=== PATIENT | female | born 1970 | race Caucasian/White ===

== ENCOUNTER → 2016-08-02 | Outpatient (REF) | payer BC | LOC: M SFHCWAGY 15:10 | PROVIDERS: ATTEND Family Medicine | DX: Z12.4 Encounter for screening for malignant neoplasm of cervix (principal) ==

== ENCOUNTER → 2017-01-28 | Outpatient (CLI) | payer BC ==
[~2017-01-28] MED LIST: ALBU17IN INH; CLAR10CA3 PO; COLE625TAB PO; FLUT1SPR2; IRON50TA PO; MEDR10TA PO; MONT10TA2 PO; OMEP40CA2 PO; OXYC1TAB23 PO; RANI15TA PO
--- NOTE | 2017-01-28 18:25 | REP ---
PELVIC ULTRASOUND: Real-time sonographic evaluation of the pelvis was performed utilizing transabdominal and endovaginal technique. The bladder measures 6.3 x 4.2 x 7.9 cm. The uterus measures 13.0 x 5.7 x 5.8 cm. Study is limited due to patient body habitus and uterine length, limiting evaluation of the uterus on endovaginal imaging. There is a rounded heterogenous mass like area in the fundus measuring 4.1 x 3.2 x 3.2 cm, I am uncertain if this endometrial or myometrial in etiology. Differential diagnosis would include an endometrial mass or submucosal fibroid. Right ovary measures 3.5 x 2.1 x 2.2 cm and contains a dominant follicle 1.3 cm in diameter. Left ovary measures 3.8 x 1.2 x 2.3 cm. There is no adnexal mass or free fluid. IMPRESSION: Somewhat limited exam due to patient body habitus. Somewhat enlarged uterus. Heterogenous mass like area in the fundus of the uterus measures 4.1 x 3.2 x 3.2 cm. Etiology is uncertain. This could represent a submucosal fibroid but endometrial neoplasm can not be excluded.
== END ==
LOC: M WHC 11:01
PROVIDERS: ATTEND Nurse Practitioner Women's Health
DX: N92.1 Excessive and frequent menstruation with irregular cycle (principal)

== ENCOUNTER → 2017-01-30 | Outpatient (REF) | payer BC ==
[2017-01-31 11:51] LABS: ADD MANUAL DIFFER YES; MEAN CORPUSCULAR HEMOGLOBIN 22.6 pg (27.0-33.0); MEAN CORPUSCULAR HGB CONC 30.5 g/dl (32.0-36.5); MEAN CORPUSCULAR VOLUME 74.3 fl (80.0-96.0); RED CELL DISTRIBUTION WIDTH 15.9 % (11.5-14.5)
[2017-01-31 12:08] LABS: ALBUMIN 3.1 GM/DL (3.2-5.2); ALBUMIN/GLOBULIN RATIO 0.78 (1.00-1.93); ALKALINE PHOSPHATASE 82 U/L (45-117); ALT/SGPT 28 U/L (12-78); ANION GAP 8 MEQ/L (8-16); AST/SGOT 17 U/L (15-37); BILIRUBIN,TOTAL 0.2 MG/DL (0.2-1.0); BLOOD UREA NITROGEN 7 MG/DL (7-18); CALCIUM LEVEL 8.4 MG/DL (8.5-10.1); CARBON DIOXIDE LEVEL 27 MEQ/L (21-32); CHLORIDE LEVEL 107 MEQ/L (98-107); CREATININE FOR GFR 0.75 MG/DL (0.55-1.02); GLOMERULAR FILTRATION RATE > 60.0 (>58); GLUCOSE, FASTING 92 MG/DL (70-105); POTASSIUM SERUM 3.8 MEQ/L (3.5-5.1); SODIUM LEVEL 142 MEQ/L (136-145); TOTAL PROTEIN 7.1 GM/DL (6.4-8.2)
[2017-01-31 12:18] LABS: EOSINOPHILS 8 % (0-5)
[2017-01-31 12:19] LABS: PLATELET CLUMPS LARGE AMT
[2017-01-31 12:22] LABS: HYPOCHROMASIA 2+; MICROCYTOSIS 1+
[2017-01-31 12:31] LABS: ERYTHROCYTE SEDIMENTATION RATE 24 mm/hr (0-20)
== END ==
LOC: M SFHCLERA 15:22
PROVIDERS: ATTEND Family Medicine
DX: M79.604 Pain in right leg (principal)

== ENCOUNTER → 2017-01-31 | Outpatient (REF) | payer BC | LOC: M SFHCWAGY 14:37 | PROVIDERS: ATTEND Nurse Practitioner Family | DX: N92.1 Excessive and frequent menstruation with irregular cycle (principal) ==

== ENCOUNTER 2017-03-04 10:05 | Day surgery (SDC) | payer BC ==
[~2017-03-04] VITALS: Ht 157.5 cm; Wt 88.9 kg
[~2017-03-04 10:05] MED LIST changes: -MEDR10TA PO; -MONT10TA2 PO; -OMEP40CA2 PO; -OXYC1TAB23 PO
[2017-03-04] MEDS ORDERED: LIDOCAINE 1% MDV 20ML VIAL SQ ONE (10:30)
[2017-03-04] MEDS ORDERED: LR 1,000 ML IV ONE (10:30)
[2017-03-04 10:37] LABS: MEAN CORPUSCULAR HEMOGLOBIN 24.7 pg (27.0-33.0); MEAN CORPUSCULAR HGB CONC 32.2 g/dl (32.0-36.5); MEAN CORPUSCULAR VOLUME 76.5 fl (80.0-96.0); RED CELL DISTRIBUTION WIDTH 17.9 % (11.5-14.5); WHITE BLOOD COUNT 9.5 K/mm3 (4.0-10.0)
[2017-03-04 10:40] LABS: CONTROL LINE UCG INT CTR LINE PRESENT
[2017-03-04] MEDS ORDERED: dexameTHASONE 4 MG/ML 1ML VIAL (J1100) As Ordered ONE (10:58)
[2017-03-04] MEDS ORDERED: KETOROLAC 60 MG/2 ML VIAL (J1885) As Ordered ONE (10:58)
[2017-03-04] MEDS ORDERED: ONDANSETRON 4MG/2ML VIAL (J2405) As Ordered ONE (10:58)
[2017-03-04] MEDS ORDERED: LIDOCAINE 2% INJ 100 MG/5 ML SDV (FOR ANES.) As Ordered ONE (10:58)
[2017-03-04] MEDS ORDERED: PROPOFOL 200 MG/20 ML VIAL As Ordered ONE (10:58)
[2017-03-04] MEDS ORDERED: fentaNYL 100 MCG/2 ML INJECTION (J3010) As Ordered ONE ×3 (12:29→13:38)
[2017-03-04] MEDS ORDERED: MIDAZOLAM INJ 2 MG/2 ML VIAL (J2250) As Ordered ONE (12:29)
[2017-03-04] MEDS ORDERED: SILVER NITRATE APPLICATOR As Ordered ONE ×2 (13:10→13:36)
[2017-03-04] MEDS ORDERED: PERCOCET 5MG/325MG TAB As Ordered ONE (13:38)
[2017-03-04] MEDS: fentaNYL 100 MCG/2 ML INJECTION (J3010) IV PRN ×3 (13:42→13:52)
[2017-03-04] MEDS ORDERED: PERCOCET 5MG/325MG TAB PO PRN ×2 (13:45)
[2017-03-04] MEDS ORDERED: ONDANSETRON 4MG/2ML VIAL (J2405) IV PRN (13:45)
[2017-03-04] MEDS ORDERED: LR 1,000 ML IV SCH (13:45)
[2017-03-04] MEDS ORDERED: HYDROmorphone HCL 1 MG/ML SYRINGE (J1170) IV PRN (13:45)
[2017-03-04 15:40] VITALS: BP 139/73
[2017-03-04] MEDS ORDERED: KETOROLAC 30 MG/ML VIAL (J1885) IV SCH (17:00)
--- NOTE | 2017-03-04 21:48 | RO ---
DATE OF PROCEDURE: 03/04/2017 PREPROCEDURE DIAGNOSIS: 1. Abnormal uterine bleeding. 2. Endometrial fibroid. POSTPROCEDURE DIAGNOSIS: 1. Abnormal uterine bleeding. 2. Endometrial fibroid. PROCEDURE: Hysteroscopy and dilation and curettage with MyoSure. SURGEON: Dr. Antonia García TANGLED YARN WORKER: ANESTHESIA: General endotracheal anesthesia. ESTIMATED BLOOD LOSS: 10 mL INTRAVENOUS FLUIDS: 1100 mL of lactated Ringer's solution. URINE OUTPUT: 400 mL. SPECIMENS: Endometrial curetting and endometrial fibroid. OPERATIVE FINDINGS: Patient with an approximately 4 cm endometrial fibroid. The uterus sounded to 11-1/2 cm. Otherwise normal appearing endometrial cavity. DESCRIPTION OF PROCEDURE: After informed consent was obtained and written consent was reviewed, the patient was brought to the operating room where general endotracheal anesthesia was obtained. She was then placed in lithotomy position and was prepped and draped in the normal sterile fashion. A time-out in the operating room was then performed identifying the patient, procedure to be performed, as well as drug allergies. A bivalve speculum was then placed revealing the cervix. The anterior lip of the cervix was grasped with a single-tooth tenaculum. The cervix was then sounded to 11-1/2 cm. Next, the cervix was then sequentially dilated using Hanks dilators. The hysteroscope was then advanced through the cervical os to the level of the fundus where the endometrial cavity was surveyed with the above noted finding. Next, a MyoSure device was then advanced through the hysteroscope, and I began to morcellate the endometrial fibroid and during this process, I noted that our fluid deficit was approaching 700 mL at which time I terminated the procedure with partial morcellation of the endometrial fibroid. The hysteroscope was then removed. A sharp curette was then advanced through the cervical os at the level of the fundus and the uterus was curetted with a large amount of tissue from the sharp curetting. Instruments were then removed from the patient's vagina. The specimen was all collected and sent to pathology for further evaluation. The single-tooth tenaculum was removed and tenaculum sites were hemostatic using silver nitrate. The speculum was then removed. In-and-out catheter was then performed productive of 400 mL of clear urine. The patient was then taken out of lithotomy position, was awakened from general anesthesia and taken to recovery in stable condition. Counts were correct.
[2017-03-28] MEDS ORDERED: OMEP40CA2 PO (09:48)
[2017-03-28] MEDS ORDERED: MEDR10TA PO (09:48)
[2017-03-28] MEDS ORDERED: MONT10TA2 PO (09:48)
== END 2017-03-04 16:00 | disposition home or self-care (01) ==
LOC: M SDC 10:05
PROVIDERS: ATTEND Obstetrics & Gynecology
DX: N93.9 Abnormal uterine and vaginal bleeding, unspecified (principal); D25.9 Leiomyoma of uterus, unspecified; K21.9 Gastro-esophageal reflux disease without esophagitis; D64.9 Anemia, unspecified; I83.91 Asymptomatic varicose veins of right lower extremity; J30.2 Other seasonal allergic rhinitis; Z79.899 Other long term (current) drug therapy
CPT/HCPCS: 36415; 58558; 84703; 85027; 86850; 88305; J1100; J1885; J2250; J2405; J3010

== ENCOUNTER 2017-03-31 11:59 | Day surgery (SDC) | payer BC ==
[~2017-03-31] VITALS: Ht 157.5 cm; Wt 83.5 kg
[~2017-03-31 11:59] MED LIST changes: +MEDR10TA PO; +MONT10TA2 PO; +OMEP40CA2 PO
[2017-03-31] MEDS ORDERED: LR 1,000 ML IV ONE (12:15)
[2017-03-31 12:44] LABS: MEAN CORPUSCULAR HEMOGLOBIN 25.6 pg (27.0-33.0); MEAN CORPUSCULAR HGB CONC 31.9 g/dl (32.0-36.5); MEAN CORPUSCULAR VOLUME 80.3 fl (80.0-96.0); RED CELL DISTRIBUTION WIDTH 19.8 % (11.5-14.5); WHITE BLOOD COUNT 8.2 10^3/uL (4.0-10.0)
[2017-03-31] MEDS ORDERED: BUPIVACAINE HCL 0.25% 30 ML VIAL As Ordered ONE (13:27)
[2017-03-31] MEDS ORDERED: ceFAZolin 2 GM/D5W 50 ML IV BAG (J0690) As Ordered ONE (13:42)
[2017-03-31] MEDS ORDERED: GLYCOPYRROLATE INJ 0.2 MG/ML 2 ML VIAL As Ordered ONE (14:27)
[2017-03-31] MEDS ORDERED: ROCURONIUM BROMIDE 50 MG/5 ML VIAL/SYRINGE As Ordered ONE ×2 (14:27→14:34)
[2017-03-31] MEDS ORDERED: diphenhydrAMINE INJ 50MG/ML VIAL (J1200) As Ordered ONE (14:27)
[2017-03-31] MEDS ORDERED: NEOSTIGMINE 10 MG/10 ML VIAL (J2710) As Ordered ONE (14:27)
[2017-03-31] MEDS ORDERED: fentaNYL 250 MCG/5 ML INJECTION (J3010) As Ordered ONE (14:27)
[2017-03-31] MEDS ORDERED: LIDOCAINE 2% INJ 100 MG/5 ML SDV (FOR ANES.) As Ordered ONE (14:27)
[2017-03-31] MEDS ORDERED: ONDANSETRON 4MG/2ML VIAL (J2405) As Ordered ONE (14:27)
[2017-03-31] MEDS ORDERED: PROPOFOL 200 MG/20 ML VIAL As Ordered ONE ×2 (14:27→18:01)
[2017-03-31] MEDS ORDERED: dexameTHASONE 4 MG/ML 1ML VIAL (J1100) As Ordered ONE (14:27)
[2017-03-31] MEDS ORDERED: HYDROmorphone HCL 2 MG/ML 1ML VIAL (J1170) As Ordered ONE (14:27)
[2017-03-31] MEDS ORDERED: KETOROLAC 60 MG/2 ML VIAL (J1885) As Ordered ONE (14:27)
[2017-03-31] MEDS ORDERED: MIDAZOLAM INJ 2 MG/2 ML VIAL (J2250) As Ordered ONE (14:27)
[2017-03-31] MEDS ORDERED: ESMOLOL INJ 100MG/10ML VIAL As Ordered ONE (18:02)
[2017-03-31] MEDS ORDERED: PERCOCET 5MG/325MG TAB As Ordered ONE (18:32)
[2017-03-31] MEDS ORDERED: fentaNYL 100 MCG/2 ML INJECTION (J3010) As Ordered ONE (18:32)
[2017-03-31] MEDS: fentaNYL 100 MCG/2 ML INJECTION (J3010) IV PRN ×4 (18:35→18:54)
[2017-03-31] MEDS ORDERED: HYDROmorphone HCL 1 MG/ML SYRINGE (J1170) IV PRN (18:45)
[2017-03-31] MEDS ORDERED: LR 1,000 ML IV SCH (18:45)
[2017-03-31] MEDS ORDERED: zolPIDEM TARTRATE 10MG TAB PO PRN (18:45)
[2017-03-31] MEDS ORDERED: PROMETHAZINE INJ 25 MG/ML VIAL (J2550) IV PRN (18:45)
[2017-03-31] MEDS ORDERED: PERCOCET 5MG/325MG TAB PO PRN ×2 (18:45)
[2017-03-31] MEDS ORDERED: ONDANSETRON 4MG/2ML VIAL (J2405) IV PRN (18:45)
[2017-03-31] MEDS ORDERED: MORPHINE 4 MG/ML 1ML SYRINGE IV PRN (18:45)
[2017-03-31 20:00] VITALS: BP 107/59
[2017-03-31 20:30] VITALS: BP 120/65
[2017-03-31 21:00] VITALS: BP 129/68
[2017-03-31] MEDS ORDERED: KETOROLAC 30 MG/ML VIAL (J1885) IV SCH (21:00)
[2017-03-31 21:30] VITALS: BP 124/59
[2017-03-31 22:30] VITALS: BP 138/84
[2017-03-31] MEDS: PERCOCET 5MG/325MG TAB PO PRN (22:40)
[2017-03-31 23:30] VITALS: BP 132/82
[2017-04-01 00:30] VITALS: BP 137/69
[2017-04-01] MEDS: KETOROLAC 30 MG/ML VIAL (J1885) IV SCH ×2 (00:42→05:21)
[2017-04-01 01:30] VITALS: BP 129/68
[2017-04-01 07:01] LABS: MEAN CORPUSCULAR HGB CONC 32.4 g/dl (32.0-36.5); MEAN CORPUSCULAR VOLUME 80.3 fl (80.0-96.0); RED CELL DISTRIBUTION WIDTH 19.5 % (11.5-14.5)
[2017-04-01 08:00] VITALS: BP 125/70
[2017-04-01] MEDS ORDERED: OXYC1TAB23 PO (09:26)
[2017-04-01] MEDS: PERCOCET 5MG/325MG TAB PO PRN (10:04)
--- NOTE | 2017-04-05 07:34 | RO ---
DATE OF PROCEDURE: 03/31/2017 PREPROCEDURE DIAGNOSIS: 1. Abnormal uterine bleeding. 2. Fibroid uterus. POSTPROCEDURE DIAGNOSIS: 1. Abnormal uterine bleeding. 2. Fibroid uterus. PROCEDURE: 1. Robotic-assisted laparoscopic hysterectomy. 2. Bilateral salpingectomy. 3. Cystoscopy. SURGEON: Antonia García MD JUSTICE COURT JUDGE: Chuck Parmar MD ANESTHESIA: General endotracheal anesthesia. ESTIMATED BLOOD LOSS: 100 ML. INTRAVENOUS FLUIDS: 1800 mL of lactated Ringer's solution. URINE OUTPUT: 500 mL. SPECIMENS: Cervix, uterus, bilateral fallopian tubes. PREOPERATIVE ANTIBIOTICS: 2 grams of Ancef INFECTION CLASSIFICATION: #2. OPERATIVE FINDINGS: Patient with densely adhered anterior uterus to the abdominal wall. Normal bilateral adnexa. CYSTOSCOPIC FINDINGS: Reveal normal bladder mucosa. No foreign bodies were visualized. Bilateral ureteral jets were observed. DESCRIPTION OF PROCEDURE: After informed consent was obtained and written consent was reviewed, the patient was brought to the operating room where she was placed under general endotracheal anesthesia. She was then placed in the lithotomy position and prepped and draped in a normal sterile fashion. A time- out in the operating room was then performed, identifying the patient, procedure to be performed, as well as drug allergies. A speculum was then placed revealing the cervix, anterior and posterior aspect of the cervix was stitched with #0 Vicryl. The uterus was then sounded to 9 cm. A small VCare uterine manipulator was then advanced through the cervical os, as a means to manipulate the uterus. The uterine balloon was insufflated with 10 mL of air. Cervical cap was then placed over the cervix. The vaginal sleeve was advanced down to the vagina. Instruments were then removed from the patient's vagina. Lynn catheter was then placed and set to gravity. Gloves were changed. Attention was turned to the patient's abdomen where a Veress needle was placed through the umbilicus. Pneumoperitoneum was then obtained with CO2 gas. Supraumbilical area was then infused with 0.25% Marcaine, and an incision was made in this area. 12 mm trocar and sleeve was advanced through this incision. Laparoscope was then replaced revealing intraabdominal placement. The lateral ports, left and right of umbilicus, were placed. Each of these ports were infused with 0.25% Marcaine. Incision was made in each one of these areas. 8 mm trocars and sleeve was advanced through each one of these incisions under direct visualization. The fourth trocar was placed in the left side of the patient's abdomen. This area was infused with 0.25% Marcaine. An incision was made in this area and another 8 mm trocar and sleeve was advanced through this incision under direct visualization. Next, the da Danae was then advanced to the patient's table, then was docked utilizing the camera arm and two operative arms. Utilizing the da Danae equipment with bipolar cautery, bilateral salpingectomies were performed. The right fallopian tube was placed on traction. The mesosalpinx was then cauterized and ligated with good hemostasis noted. It was transected at the uterus and specimen was brought out through the incision. In a similar fashion, the left fallopian tube was placed on traction and dissection was then performed along the mesosalpinx, the fallopian tube was transected at the uterus. The specimen was then brought through the incision. Next, a dense band of adhesion was transected from the anterior portion of the uterus from the abdominal wall using a PK bipolar cautery device with good hemostasis noted. The round ligaments were then cauterized bilaterally and ligated with good hemostasis noted. The anterior lip of the broad ligaments were then dissected along the bladder, creating a bladder flap. The remainder of the broad ligaments and cardinal ligaments were cauterized with good hemostasis noted. The uterine arteries were then skeletonized bilaterally, and they were cauterized and ligated with good hemostasis noted. Next, anterior and posterior colpotomies were made and the uterus was removed vaginally. Good hemostasis was noted. Next, the vaginal cuff was closed using a #2-0 V-Loc system in a running fashion. Surgical sites were inspected and noted to be hemostatic. Luis Angel was then applied over surgical urbano. The da Danae was then undocked and cystoscopy was performed. Lynn catheter was removed and a cystoscope was advanced transurethrally. Cystoscopy was performed revealing normal bladder mucosa. No foreign bodies with bilateral ureteral jets observed. The bladder was then drained, gloves were changed and attention was turned to the patient's abdomen. All four skin incisions were closed with #4-0 Monocryl and was dressed with Dermabond. The patient was then taken out of the lithotomy position, was awakened from general anesthesia and taken to recovery in stable condition. Counts were correct. MTDD
== END 2017-04-01 10:23 | disposition home or self-care (01) ==
LOC: M SDC 11:59 → M PED 19:30 → M SDC 04-01 10:23
PROVIDERS: ATTEND Obstetrics & Gynecology
DX: N93.9 Abnormal uterine and vaginal bleeding, unspecified (principal); D25.0 Submucous leiomyoma of uterus; N72 Inflammatory disease of cervix uteri; K21.9 Gastro-esophageal reflux disease without esophagitis; D64.9 Anemia, unspecified; I83.91 Asymptomatic varicose veins of right lower extremity; J30.2 Other seasonal allergic rhinitis; Z79.899 Other long term (current) drug therapy; Z98.51 Tubal ligation status
CPT/HCPCS: 36415; 58571; 85027; 86850; 86900; 86901; 88307; A6024; J0690; J1100; J1170; J1200; J1885; J2250; J2405; J2710; J3010

== ENCOUNTER → 2017-06-05 | Outpatient (CLI) | payer BC ==
[~2017-06-05] MED LIST changes: +OXYC1TAB23 PO
--- NOTE | 2017-06-05 09:10 | REPMRS ---
Patient History The patient states she has not had a clinical breast exam in over a year. Family history of breast cancer in maternal aunt at age 50 or over. Benign stereotactic core biopsy of the right breast, May 03, 2014. Digital Mammo Screening Bilat: June 05, 2017 - Exam #: [id number] Bilateral CC and MLO view(s) were taken. Technologist: Liya Guevara, Technologist Prior study comparison: June 03, 2016, bilateral digital mammo screening bilat performed at [facility]. June 01, 2015, bilateral digital mammo screening bilat performed at [facility]. FINDINGS: There are scattered fibroglandular densities. There has been no change in the appearance of the mammogram from the prior studies. There is a mild amount of residual fibroglandular tissue which is fairly symmetric. There is no interval development of dominant mass, architectural distortion, or clustered microcalcification suggestive of malignancy. ASSESSMENT: BI-RADS/ACR category 1 mammogram. Negative. Recommendation Routine screening mammogram in 1 year (for women over age 40). This mammogram was interpreted with the aid of an FDA-approved computer-aided dectection system. Electronically Signed By: Yandel Avalos MD 06/05/17 0910
== END ==
LOC: M RAD 08:15
PROVIDERS: ATTEND Obstetrics & Gynecology
DX: Z12.31 Encounter for screening mammogram for malignant neoplasm of breast (principal)

== ENCOUNTER → 2018-02-22 | Outpatient (REF) | payer BC | LOC: M SFHCLERA 16:01 | DX: J02.9 Acute pharyngitis, unspecified (principal) ==

== ENCOUNTER → 2018-02-22 | Outpatient (CLI) | payer BC | LOC: M LRY 13:21 | DX: R06.02 Shortness of breath (principal) | CPT/HCPCS: 87804 ==

== ENCOUNTER → 2018-03-16 | Outpatient (REF) | payer BC | LOC: M SFHCLERA 14:35 | DX: L60.8 Other nail disorders (principal) ==

== ENCOUNTER → 2018-03-17 | Outpatient (CLI) | payer BC ==
[2018-03-17 14:30] LABS: BASO % 0.3 % (0.0-1.0); EOS # 0.1 10^3/uL (0.0-0.50); HEMATOCRIT 35.5 % (36.0-47.0); HEMOGLOBIN 11.5 g/dl (12.0-15.5); IMMATURE GRANULOCYTE % 0.3 % (0-3.0); LYMPH % 30.1 % (24.0-44.0); MEAN CORPUSCULAR HGB CONC 32.4 g/dl (32.0-36.5); MEAN CORPUSCULAR VOLUME 83.3 fl (80.0-96.0); MONO # 0.5 10^3/uL (0.0-0.8); MONO % 6.9 % (0.0-5.0); NEUTROPHILS % 60.4 % (36.0-66.0); PLATELET COUNT, AUTOMATED 293 10^3/uL (150-450); RED BLOOD COUNT 4.26 10^6/uL (4.00-5.40); WHITE BLOOD COUNT 6.5 10^3/uL (4.0-10.0)
[2018-03-17 15:04] LABS: ANION GAP 10 MEQ/L (8-16); BLOOD UREA NITROGEN 9 MG/DL (7-18); CALCIUM LEVEL 7.9 MG/DL (8.5-10.1); CARBON DIOXIDE LEVEL 25 MEQ/L (21-32); CHLORIDE LEVEL 106 MEQ/L (98-107); CREATININE FOR GFR 0.81 MG/DL (0.55-1.30); GLOMERULAR FILTRATION RATE > 60.0 (>58); GLUCOSE, FASTING 97 MG/DL (70-100); POTASSIUM SERUM 3.2 MEQ/L (3.5-5.1); SODIUM LEVEL 141 MEQ/L (136-145)
== END ==
LOC: M RAD 13:22
DX: I83.893 Varicose veins of bilateral lower extremities with other complications (principal); L60.8 Other nail disorders
CPT/HCPCS: 93971

== ENCOUNTER → 2018-03-24 | Outpatient (REF) | payer BC ==
[2018-03-24 21:09] LABS: POTASSIUM SERUM 3.9 MEQ/L (3.5-5.1)
== END ==
LOC: M SFHCLERA 16:17
DX: E87.6 Hypokalemia (principal)
CPT/HCPCS: 84132

== ENCOUNTER → 2018-07-23 | Outpatient (CLI) | payer BC ==
--- NOTE | 2018-07-23 09:11 | REPMRS ---
Patient History The patient states she had a clinical breast exam in June 2018.Family history of breast cancer at age 50 or over in maternal aunt. Benign stereotactic core biopsy of the right breast, May 03, 2014. Digital Mammo Screening Bilat: July 23, 2018 - Exam #: [id number] Bilateral CC and MLO view(s) were taken. Technologist: Liya Guevara, Technologist Prior study comparison: June 05, 2017, bilateral digital mammo screening bilat performed at [facility]. June 03, 2016, bilateral digital mammo screening bilat performed at [facility]. June 01, 2015, bilateral digital mammo screening bilat performed at [facility]. FINDINGS: There are scattered fibroglandular densities. There is a needle biopsy marker clip in the right breast. There has been no change in the appearance of the mammogram from the prior studies. There is a mild amount of scattered fibroglandular density which is fairly symmetric. There is no interval development of dominant mass, architectural distortion, or clustered microcalcification suggestive of malignancy. 3-D tomosynthesis shows no additional findings. Assessment: BI-RADS/ACR category 2 mammogram. Benign Findings. Recommendation Routine screening mammogram of both breasts in 1 year (for women over age 40). This patient's Lifetime Breast Cancer RIsk is estimated at 11.7 %. This mammogram was interpreted with the aid of an FDA-approved computer-aided dectection system. Electronically Signed By: Houston Carter MD 07/23/18 0910
== END ==
LOC: M RAD 06:43
PROVIDERS: ATTEND Obstetrics & Gynecology
DX: Z12.31 Encounter for screening mammogram for malignant neoplasm of breast (principal); Z80.3 Family history of malignant neoplasm of breast; R92.8 Other abnormal and inconclusive findings on diagnostic imaging of breast

== ENCOUNTER → 2018-09-21 | Outpatient (CLI) | payer BC ==
--- NOTE | 2018-09-22 09:47 | REP ---
Clinical: Plantar fasciitis Technique: AP, lateral, bilateral oblique views left foot . Findings: There is no evidence for acute fracture dislocation. Minimal age-related degenerative changes include subchondral sclerosis and subtle joint space narrowing primarily involving the first tarsometatarsal, metatarsophalangeal, and interphalangeal joint as well as the second through fourth interphalangeal joints. Surrounding soft tissues are normal. Lateral view suggests a very small early forming heel spur. Impression: Minimal age-related changes as noted above. Very small heel spur. Electronically Signed by Fredrick Hassan MD 09/22/2018 09:39 A
== END ==
LOC: M LRY 12:35
PROVIDERS: ATTEND Nurse Practitioner Family
DX: M72.2 Plantar fascial fibromatosis (principal)

== ENCOUNTER → 2018-11-12 | Outpatient (REF) | payer BC ==
[~2018-11-12] MED LIST changes: +CARV12.5 PO; +CELE1CAP7 PO; +LISI10TA4 PO; +NEXI40CA PO
[2018-11-12 11:53] LABS: BASO % 0.4 % (0.0-1.0); EOS # 0.1 10^3/uL (0.0-0.50); EOS % 1.5 % (0.0-3.0); HEMATOCRIT 38.1 % (36.0-47.0); HEMOGLOBIN 12.8 g/dl (12.0-15.5); LYMPH # 1.8 10^3/uL (1.5-4.5); LYMPH % 20.7 % (24.0-44.0); MEAN CORPUSCULAR HEMOGLOBIN 29.7 pg (27.0-33.0); MEAN CORPUSCULAR HGB CONC 33.6 g/dl (32.0-36.5); MEAN CORPUSCULAR VOLUME 88.4 fl (80.0-96.0); MONO # 0.5 10^3/uL (0.0-0.8); NEUTROPHILS # 6.1 10^3/uL (1.8-7.7); NEUTROPHILS % 71.2 % (36.0-66.0); PLATELET COUNT, AUTOMATED 178 10^3/uL (150-450); RED BLOOD COUNT 4.31 10^6/uL (4.00-5.40); WHITE BLOOD COUNT 8.5 10^3/uL (4.0-10.0)
[2018-11-12 12:11] LABS: ALBUMIN 3.2 GM/DL (3.2-5.2); ALT/SGPT 14 U/L (12-78); BILIRUBIN,TOTAL 0.3 MG/DL (0.2-1.0); BLOOD UREA NITROGEN 9 MG/DL (7-18); CALCIUM LEVEL 8.5 MG/DL (8.5-10.1); CARBON DIOXIDE LEVEL 28 MEQ/L (21-32); CHLORIDE LEVEL 106 MEQ/L (98-107); CREATININE FOR GFR 0.68 MG/DL (0.55-1.30); GLOMERULAR FILTRATION RATE > 60.0 (>58); GLUCOSE, FASTING 92 MG/DL (70-100); POTASSIUM SERUM 3.8 MEQ/L (3.5-5.1); SODIUM LEVEL 140 MEQ/L (136-145); TOTAL PROTEIN 6.7 GM/DL (6.4-8.2)
[2018-11-12 12:12] LABS: FREE T4 1.01 NG/DL (0.76-1.46); THYROID STIMULATING HORMONE 0.902 uIU/ML (0.358-3.740)
== END ==
LOC: M SFHCLERA 08:21
PROVIDERS: ATTEND Nurse Practitioner Family
DX: R03.0 Elevated blood-pressure reading, without diagnosis of hypertension (principal)

== ENCOUNTER → 2018-11-17 | Outpatient (REF) | payer BC ==
[2018-11-17 15:41] LABS: APPEARANCE, URINE CLEAR (CLEAR); BACTERIA, URINE AUTO 1+ (NEGATIVE); BILIRUBIN, URINE AUTO NEGATIVE (NEGATIVE); BLOOD, URINE BLOOD NEGATIVE (NEGATIVE); COLOR, URINE YELLOW (YELLOW); GLUCOSE, URINE (UA) AUTO NEGATIVE (NEGATIVE); KETONE, URINE AUTO NEGATIVE (NEGATIVE); LEUKOCYTE ESTERASE, URINE AUTO NEGATIVE (NEGATIVE); MUCUS, URINE SMALL (NEGATIVE); NITRITE, URINE AUTO NEGATIVE (NEGATIVE); PROTEIN, URINE AUTO NEGATIVE (NEGATIVE); RBC, URINE AUTO 0 /HPF (0-3); SQUAMOUS EPITHELIAL CELL UR AU 0 /HPF (0-6); UROBILINOGEN, URINE AUTO 0.2 mg/dL (0.0-2.0); WBC, URINE AUTO 0 /HPF (0-3)
== END ==
LOC: M LABDRAW1 12:18
PROVIDERS: ATTEND Internal Medicine Cardiovascular Disease
DX: I10 Essential (primary) hypertension (principal)

== ENCOUNTER → 2018-11-18 | Outpatient (REF) | payer BC | LOC: M LAB REF 15:37 | PROVIDERS: ATTEND Internal Medicine Cardiovascular Disease | DX: I10 Essential (primary) hypertension (principal) ==

== ENCOUNTER → 2018-12-08 | Outpatient (CLI) | payer BC ==
[2018-12-08 09:36] LABS: ALBUMIN 3.3 GM/DL (3.2-5.2); BLOOD UREA NITROGEN 12 MG/DL (7-18); CALCIUM LEVEL 8.9 MG/DL (8.5-10.1); CARBON DIOXIDE LEVEL 25 MEQ/L (21-32); CHLORIDE LEVEL 105 MEQ/L (98-107); CREATININE FOR GFR 0.76 MG/DL (0.55-1.30); GLOMERULAR FILTRATION RATE > 60.0 (>58); GLUCOSE, FASTING 82 MG/DL (70-100); PHOSPHORUS LEVEL 3.2 MG/DL (2.5-4.9); POTASSIUM SERUM 3.5 MEQ/L (3.5-5.1); SODIUM LEVEL 138 MEQ/L (136-145)
== END ==
LOC: M LAB 08:45
PROVIDERS: ATTEND Internal Medicine Cardiovascular Disease
DX: E87.6 Hypokalemia (principal)

== ENCOUNTER → 2018-12-17 | Outpatient (CLI) | payer BC ==
[2018-12-23 00:06] LABS: METANEPHRINE PLASMA 32 pg/mL (0-62); METANEPHRINE TOTAL URINE 51 ug/L (Undefined); NORMETANEPHRINE PLASMA 106 pg/mL (0-145); NORMETANEPHRINE TOTAL URINE 194 ug/L (Undefined)
== END ==
LOC: M LAB 12:26
PROVIDERS: ATTEND Internal Medicine Endocrinology, Diabetes & Metabolism
DX: E27.0 Other adrenocortical overactivity (principal)

== ENCOUNTER → 2019-02-03 | Outpatient (CLI) | payer BC ==
[2019-02-03 07:16] LABS: CHOLESTEROL RISK RATIO 3.093 (<5)
== END ==
LOC: M LAB 06:13
PROVIDERS: ATTEND Nurse Practitioner Family
DX: Z13.220 Encounter for screening for lipoid disorders (principal)

== ENCOUNTER → 2019-07-15 | Outpatient (REF) | payer BC ==
[~2019-07-15] MED LIST changes: -OMEP40CA2 PO; +OMEP40CA97 PO
[2019-07-15 12:28] LABS: BASO % 0.4 % (0.0-1.0); EOS # 0.1 10^3/uL (0.0-0.5); EOS % 1.5 % (0.0-3.0); HEMATOCRIT 39.7 % (36.0-47.0); HEMOGLOBIN 13.6 g/dl (12.0-15.5); LYMPH # 1.8 10^3/uL (1.5-5.0); LYMPH % 24.2 % (24.0-44.0); MEAN CORPUSCULAR HEMOGLOBIN 30.6 pg (27.0-33.0); MEAN CORPUSCULAR HGB CONC 34.3 g/dl (32.0-36.5); MEAN CORPUSCULAR VOLUME 89.4 fl (80.0-96.0); MONO # 0.6 10^3/uL (0.0-0.8); MONO % 8.1 % (0.0-5.0); NEUTROPHILS # 4.8 10^3/uL (1.5-8.5); NEUTROPHILS % 65.5 % (36.0-66.0); PLATELET COUNT, AUTOMATED 189 10^3/uL (150-450); RED BLOOD COUNT 4.44 10^6/uL (4.00-5.40); WHITE BLOOD COUNT 7.3 10^3/uL (4.0-10.0)
[2019-07-15 12:40] LABS: ALBUMIN 3.6 GM/DL (3.2-5.2); ALT/SGPT 46 U/L (12-78); BILIRUBIN,TOTAL 0.5 MG/DL (0.2-1.0); BLOOD UREA NITROGEN 9 MG/DL (7-18); CALCIUM LEVEL 8.7 MG/DL (8.5-10.1); CARBON DIOXIDE LEVEL 31 MEQ/L (21-32); CHLORIDE LEVEL 104 MEQ/L (98-107); CHOLESTEROL LEVEL 196 MG/DL (<200); CHOLESTEROL RISK RATIO 4.083 (<5); CREATININE FOR GFR 0.59 MG/DL (0.55-1.30); GLOMERULAR FILTRATION RATE > 60.0 (>58); GLUCOSE, FASTING 86 MG/DL (70-100); HDL CHOLESTEROL 48 MG/DL (>40); LDL CHOLESTEROL 118 MG/DL (<100); NON-HDL-C 148 MG/DL; POTASSIUM SERUM 3.2 MEQ/L (3.5-5.1); SODIUM LEVEL 141 MEQ/L (136-145); TOTAL PROTEIN 6.8 GM/DL (6.4-8.2); TRIGLYCERIDES LEVEL 148 MG/DL (<150)
== END ==
LOC: M SFHCLERA 08:07
PROVIDERS: ATTEND Nurse Practitioner Family
DX: I10 Essential (primary) hypertension (principal); Z13.220 Encounter for screening for lipoid disorders

== ENCOUNTER → 2019-07-30 | Outpatient (REF) | payer BC ==
[~2019-07-30] MED LIST changes: -MONT10TA2 PO; +MONT10TA4 PO
== END ==
LOC: M SFHCLERA 14:14
PROVIDERS: ATTEND Nurse Practitioner Family
DX: I10 Essential (primary) hypertension (principal)

== ENCOUNTER → 2019-12-03 | Outpatient (CLI) | payer BC ==
--- NOTE | 2019-12-04 09:12 | REPMRS ---
Patient History The patient states she had a clinical breast exam in November 2019. Family history of breast cancer at age 50 or over in maternal aunt. Benign stereotactic core biopsy of the right breast, May 03, 2014. Digital Woman Screen Mammo: December 03, 2019 - Exam #: [id number] Bilateral CC and MLO view(s) were taken. Technologist: Pearl Caba, Technologist Prior study comparison: July 23, 2018, bilateral digital mammo screening bilat, performed at [facility]. June 05, 2017, bilateral digital mammo screening bilat, performed at [facility]. June 03, 2016, bilateral digital mammo screening bilat, performed at [facility]. FINDINGS: There are scattered fibroglandular densities. The Volpara volumetric breast density category is:B. There is a needle biopsy marker clip again noted on the right. There has been no change in the appearance of the mammogram from the prior studies. There is a mild amount of scattered fibroglandular density which is fairly symmetric. There is no interval development of dominant mass, architectural distortion, or grouped microcalcification suggestive of malignancy. 3-D tomosynthesis shows no additional findings. Assessment: BI-RADS/ACR category 2 mammogram. Benign Findings. Recommendation Routine screening mammogram of both breasts in 1 year (for women over age 40). This patient's Lifetime Breast Cancer Risk is estimated at 11.3 %. This mammogram was interpreted with the aid of an FDA-approved computer-aided dectection system. Electronically Signed By: Houston Carter MD 12/04/19 0911
== END ==
LOC: M WHC 13:38
PROVIDERS: ATTEND Obstetrics & Gynecology
DX: Z12.31 Encounter for screening mammogram for malignant neoplasm of breast (principal); Z80.3 Family history of malignant neoplasm of breast

== ENCOUNTER → 2020-09-06 | Outpatient (CLI) | payer BC ==
[~2020-09-06] MED LIST changes: +LISI10TA22 PO; -LISI10TA4 PO; +MONT10TA10 PO; -MONT10TA4 PO
[2020-09-06 09:58] LABS: BASO % 0.5 % (0.0-1.0); EOS # 0.1 10^3/uL (0.0-0.5); EOS % 1.6 % (0.0-3.0); HEMATOCRIT 40.6 % (36.0-47.0); HEMOGLOBIN 13.2 g/dl (12.0-15.5); LYMPH # 1.6 10^3/uL (1.5-5.0); LYMPH % 21.3 % (24.0-44.0); MEAN CORPUSCULAR HEMOGLOBIN 29.9 pg (27.0-33.0); MEAN CORPUSCULAR HGB CONC 32.5 g/dl (32.0-36.5); MEAN CORPUSCULAR VOLUME 91.9 fl (80.0-96.0); MONO # 0.5 10^3/uL (0.0-0.8); MONO % 6.6 % (2.0-8.0); NEUTROPHILS # 5.3 10^3/uL (1.5-8.5); NEUTROPHILS % 69.6 % (36.0-66.0); PLATELET COUNT, AUTOMATED 183 10^3/uL (150-450); RED BLOOD COUNT 4.42 10^6/uL (4.00-5.40); WHITE BLOOD COUNT 7.7 10^3/uL (4.0-10.0)
[2020-09-06 10:28] LABS: ALBUMIN 3.1 GM/DL (3.2-5.2); ALT/SGPT 22 U/L (12-78); BILIRUBIN,TOTAL 0.4 MG/DL (0.2-1.0); BLOOD UREA NITROGEN 11 MG/DL (7-18); CALCIUM LEVEL 8.6 MG/DL (8.5-10.1); CARBON DIOXIDE LEVEL 28 MEQ/L (21-32); CHLORIDE LEVEL 104 MEQ/L (98-107); CHOLESTEROL LEVEL 253 MG/DL (<200); CHOLESTEROL RISK RATIO 3.563 (<5); GLOMERULAR FILTRATION RATE > 60.0 (>51); GLUCOSE, FASTING 78 MG/DL (70-100); HDL CHOLESTEROL 71 MG/DL (>40); LDL CHOLESTEROL 133 MG/DL (<100); NON-HDL-C 182 MG/DL; POTASSIUM SERUM 4.1 MEQ/L (3.5-5.1); SODIUM LEVEL 139 MEQ/L (136-145); TRIGLYCERIDES LEVEL 244 MG/DL (<150)
== END ==
LOC: M WUC 08:16
PROVIDERS: ATTEND Nurse Practitioner Family
DX: I10 Essential (primary) hypertension (principal); Z79.899 Other long term (current) drug therapy

== ENCOUNTER → 2020-09-27 | Outpatient (CLI) | payer BC ==
--- NOTE | 2020-09-27 14:33 | REP ---
INDICATION: VVI,VARICOSE VEINS. COMPARISON: Comparison sonography March 17, 2018.. TECHNIQUE: Bilateral lower extremity duplex venous ultrasound is performed with the reflux evaluation. FINDINGS: The deep veins are anechoic and fully compressible from the groin to the popliteal fossa in the left and right lower extremity. Color flow imaging is homogeneous. Spectral Doppler interrogation demonstrates intact respiratory variation in flow and normal manual augmentation of flow. There is no evidence of deep vein thrombosis. Reflux evaluation: On the right, there is some echogenic material eccentrically located along the wall of the distal greater saphenous vein at the level of the knee consistent with a chronic superficial venous thrombus. Reflux greater than 0.2nd duration is seen in the greater saphenous vein from proximal to distal and also in the lesser saphenous vein on the right. Reflux measures 2.5 seconds in duration in the greater saphenous vein proximally, 4.9 seconds in duration at mid thigh, and 2.3 seconds in duration at the knee. Reflux duration in the lesser saphenous vein on the right is 7.4 seconds. Greater saphenous vein dimensions are 5.9 mm proximally, 8.1 mm at the midthigh, and 8.1 mm at the knee. Lesser saphenous vein measures 2.7 mm in diameter. Reflux greater than 0.5 seconds in duration is also noted throughout the deep venous system on the right in the common femoral vein and throughout the superficial femoral vein. On the left, there is no deep venous system reflux observed. Severe reflux is noted throughout the greater saphenous vein on the left. A collateral vein is noted coming off the greater saphenous vein just below its junction reconnecting to the distal greater saphenous vein. The left greater saphenous vein measures 3.8 mm and displace 5.2nd duration reflux at the mid thigh. Proximally it is dimension is 3.7 mm and reflux duration is with standing is 4.4 seconds. At the knee greater saphenous vein diameter is 3.7 mm and reflux duration 5.8 seconds. Lesser saphenous vein measures 1.9 mm. IMPRESSION: Bilateral superficial and right lower extremity deep system reflux is observed fairly extensively as above. There is no evidence of deep vein thrombosis. There is chronic superficial system nonocclusive thrombus in the distal greater saphenous vein on the right.. <Electronically signed by Houston Carter > 09/27/20 [id number]
== END ==
LOC: M RAD 09:34
PROVIDERS: ATTEND Physician Assistant
DX: I87.2 Venous insufficiency (chronic) (peripheral) (principal); I83.813 Varicose veins of bilateral lower extremities with pain; I82.811 Embolism and thrombosis of superficial veins of right lower extremity

== ENCOUNTER → 2020-11-10 | Outpatient (REF) | payer BC | LOC: M SFHCLERA 15:54 | PROVIDERS: ATTEND Nurse Practitioner Family | DX: J35.8 Other chronic diseases of tonsils and adenoids (principal) ==

== ENCOUNTER → 2020-12-05 | Outpatient (CLI) | payer BC ==
[~2020-12-05] MED LIST changes: +OMEP40CA4 PO; -OMEP40CA97 PO
--- NOTE | 2020-12-05 14:01 | REPMRS ---
Patient History The patient states she had a clinical breast exam in November 2020. Family history of breast cancer at age 50 or over in maternal aunt, breast cancer at age 50 or over in maternal aunt, breast cancer at age 50 or over in maternal aunt. Benign stereotactic core biopsy of the right breast, May 03, 2014. Patient states no breast complaints today. Patient has signed MRS History Sheet. Digital Woman Screen Mammo: December 05, 2020 - Exam #: [id number] Bilateral CC and MLO view(s) were taken. Technologist: Pearl Caba Technologist Prior study comparison: December 03, 2019, bilateral digital woman screen mammo performed at [facility]. July 23, 2018, bilateral digital mammo screening bilat, performed at [facility]. June 05, 2017, bilateral digital mammo screening bilat, performed at [facility]. FINDINGS: There are scattered fibroglandular densities. The Volpara volumetric breast density category is:B. There is a needle biopsy marker clip noted in the right breast. There has been no change in the appearance of the mammogram from the prior studies. There is a mild amount of scattered fibroglandular density which is fairly symmetric. There is no interval development of dominant mass, architectural distortion, or grouped microcalcification suggestive of malignancy. 3-D tomosynthesis shows no additional findings. Assessment: BI-RADS/ACR category 2 mammogram. Benign Findings. Recommendation Routine screening mammogram of both breasts in 1 year (for women over age 40). This patient's [facility] Lifetime Breast Cancer Risk is estimated at 11.1 %. This mammogram was interpreted with the aid of an FDA-approved computer-aided dectection system. Electronically Signed By: Houston Carter MD 12/05/20 7139
== END ==
LOC: M WHC 12:39
PROVIDERS: ATTEND Obstetrics & Gynecology
DX: Z12.31 Encounter for screening mammogram for malignant neoplasm of breast (principal); Z80.3 Family history of malignant neoplasm of breast

== ENCOUNTER → 2021-01-10 | Outpatient (REF) | payer BC | LOC: M SFHCLERA 11:13 | PROVIDERS: ATTEND Nurse Practitioner Family | DX: I80.01 Phlebitis and thrombophlebitis of superficial vessels of right lower extremity (principal); Z53.9 Procedure and treatment not carried out, unspecified reason ==

== ENCOUNTER → 2021-01-10 | Outpatient (CLI) | payer BC ==
--- NOTE | 2021-01-10 13:33 | REP ---
INDICATION: THROMBOSIS/LABS 1ST, US 2ND. COMPARISON: 09/27/2020 TECHNIQUE: Multiple ultrasonographic images of the deep venous structures of the right thigh were obtained from the level of the common femoral vein to the popliteal vein in the longitudinal and transverse scan planes along with Doppler interrogation and color flow Doppler imaging. Examination of superficial veins in the thigh and proximal calf also noted from an area of known tenderness and previous superficial thrombophlebitis. The left common femoral vein was also exam for comparison. FINDINGS: There is no abnormal echogenic material seen within any of the visualized deep venous structures that would suggest acute thrombosis. Coaptation is unremarkable throughout. Doppler interrogation shows an expected response to respiratory variability and augmentation. The color flow Doppler images show what appears to be a normal vascular pattern throughout. The left common femoral vein compresses normally and shows normal color flow and Doppler. Medial aspect of the right thigh from mid proximal area of the mid greater saphenous vein to the proximal calf below the level of the knee. It showed an acute thrombus with noncompressible greater saphenous vein. That portion of saphenous vein above this and just before the junction with the common femoral vein was normal for at least several cm. IMPRESSION: There is no ultrasonographic evidence of deep venous thrombosis involving any of the visualized deep venous structures of the right thigh as described above. There is acute thrombophlebitis in the greater saphenous vein of the superficial system from its mid upper aspect of the right thigh to below the level of the knee. No flow or compressibility of the vein in this region. Accredited by the [employer] in Vascular Peripheral Ultrasound. <Electronically signed by Suresh Lake > 01/10/21 1269
== END ==
LOC: M RAD 12:07
PROVIDERS: ATTEND Nurse Practitioner Family
DX: I80.01 Phlebitis and thrombophlebitis of superficial vessels of right lower extremity (principal)

== ENCOUNTER → 2022-01-18 | Outpatient (CLI) | payer BC ==
[~2022-01-18] MED LIST changes: -MONT10TA10 PO; +MONT10TA97 PO
[2022-01-18 11:36] LABS: HEMATOCRIT 41.9 % (36.0-47.0); HEMOGLOBIN 14.2 g/dl (12.0-15.5); MEAN CORPUSCULAR HEMOGLOBIN 31.3 pg (27.0-33.0); MEAN CORPUSCULAR HGB CONC 33.9 g/dl (32.0-36.5); MEAN CORPUSCULAR VOLUME 92.5 fl (80.0-96.0); PLATELET COUNT, AUTOMATED 229 10^3/uL (150-450); RED BLOOD COUNT 4.53 10^6/uL (4.00-5.40)
[2022-01-18 13:28] LABS: ALBUMIN 3.2 GM/DL (3.2-5.2); ALT/SGPT 43 U/L (12-78); BILIRUBIN,TOTAL 0.4 MG/DL (0.2-1.0); BLOOD UREA NITROGEN 11 MG/DL (7-18); CALCIUM LEVEL 8.9 MG/DL (8.5-10.1); CARBON DIOXIDE LEVEL 28 MEQ/L (21-32); CHLORIDE LEVEL 102 MEQ/L (98-107); CHOLESTEROL LEVEL 276 MG/DL (<200); CHOLESTEROL RISK RATIO 3.942 (<5); CREATININE FOR GFR 0.65 MG/DL (0.55-1.30); GLOMERULAR FILTRATION RATE > 60.0 (>51); GLUCOSE, FASTING 73 MG/DL (70-100); HDL CHOLESTEROL 70 MG/DL (>40); LDL CHOLESTEROL 156 MG/DL (<100); NON-HDL-C 206 MG/DL; POTASSIUM SERUM 4.1 MEQ/L (3.5-5.1); SODIUM LEVEL 137 MEQ/L (136-145); THYROID STIMULATING HORMONE 0.971 uIU/ML (0.358-3.740); TOTAL PROTEIN 7.3 GM/DL (6.4-8.2); TRIGLYCERIDES LEVEL 252 MG/DL (<150)
== END ==
LOC: M WUC 08:34
PROVIDERS: ATTEND Physician Assistant
DX: I10 Essential (primary) hypertension (principal)

== ENCOUNTER → 2022-03-08 | Outpatient (CLI) | payer BC ==
[~2022-03-08] MED LIST changes: +COLE625T17 PO; -COLE625TAB PO
== END ==
LOC: M WHC 10:49
PROVIDERS: ATTEND Physician Assistant
DX: Z12.31 Encounter for screening mammogram for malignant neoplasm of breast (principal)

== ENCOUNTER → 2023-01-16 | Outpatient (CLI) | payer BC ==
[~2023-01-16] MED LIST changes: -MEDR10TA PO; +MEDR10TA9 PO
== END ==
LOC: M WHC 13:33
PROVIDERS: ATTEND Obstetrics & Gynecology
DX: R10.2 Pelvic and perineal pain (principal); Z90.710 Acquired absence of both cervix and uterus

== ENCOUNTER → 2023-07-14 | Outpatient (CLI) | payer BC ==
[~2023-07-14] MED LIST changes: -CELE1CAP7 PO; +CELE1CAP99 PO
[2023-07-14 09:54] LABS: BASO % 0.4 % (0.0-1.0); EOS # 0.2 10^3/uL (0.0-0.5); EOS % 2.4 % (0.0-3.0); HEMATOCRIT 41.7 % (36.0-47.0); HEMOGLOBIN 13.7 g/dl (12.0-15.5); LYMPH % 27.4 % (24.0-44.0); MEAN CORPUSCULAR HEMOGLOBIN 30.3 pg (27.0-33.0); MEAN CORPUSCULAR HGB CONC 32.9 g/dl (32.0-36.5); MEAN CORPUSCULAR VOLUME 92.3 fl (80.0-96.0); MONO # 0.6 10^3/uL (0.0-0.8); MONO % 7.7 % (2.0-8.0); NEUTROPHILS # 4.5 10^3/uL (1.5-8.5); NEUTROPHILS % 61.7 % (36.0-66.0); PLATELET COUNT, AUTOMATED 162 10^3/uL (150-450); RED BLOOD COUNT 4.52 10^6/uL (4.00-5.40); WHITE BLOOD COUNT 7.4 10^3/uL (4.0-10.0)
[2023-07-14 10:32] LABS: FREE T4 1.05 NG/DL (0.89-1.76)
[2023-07-14 10:33] LABS: ALBUMIN 3.4 G/DL (3.2-5.2); ALKALINE PHOSPHATASE 90 U/L (46-116); ALT/SGPT 51 U/L (7.0-40); AST/SGOT 29 U/L (<34); BILIRUBIN,TOTAL 0.6 MG/DL (0.3-1.2); BLOOD UREA NITROGEN 13 MG/DL (9-23); CALCIUM LEVEL 8.9 MG/DL (8.5-10.1); CARBON DIOXIDE LEVEL 30 MMOL/L (20-31); CHLORIDE LEVEL 105 MMOL/L (98-107); CHOLESTEROL LEVEL 239 MG/DL (<200); CHOLESTEROL RISK RATIO 3.58 (<5); GLOMERULAR FILTRATION RATE > 60.0 (>51); GLUCOSE, FASTING 87 MG/DL (60-100); HDL CHOLESTEROL 66.7 MG/DL (>40); LDL CHOLESTEROL 126.5 MG/DL (<100); MAGNESIUM LEVEL 1.8 MG/DL (1.8-2.4); NON-HDL-C 172.3 MG/DL; POTASSIUM SERUM 3.9 MMOL/L (3.5-5.1); SODIUM LEVEL 139 MMOL/L (136-145); THYROID STIMULATING HORMONE 0.676 uIU/ML (0.55-4.78); TOTAL PROTEIN 6.8 G/DL (5.7-8.2); TRIGLYCERIDES LEVEL 229 MG/DL (<150)
[2023-07-14 10:34] LABS: TOTAL 25(OH) VITAMIN D 11.6 NG/ML (20.0-100.0)
== END ==
LOC: M WUC 08:02
PROVIDERS: ATTEND Physician Assistant
DX: Z00.00 Encounter for general adult medical examination without abnormal findings (principal)

== ENCOUNTER → 2023-12-01 | Outpatient (REF) | payer BC | LOC: M SFHCPLAZ 12:47 | PROVIDERS: ATTEND Physician Assistant Medical | DX: R19.7 Diarrhea, unspecified (principal) ==

== ENCOUNTER → 2024-04-27 | Outpatient (CLI) | payer BC | LOC: M WHC 13:17 | PROVIDERS: ATTEND Obstetrics & Gynecology | DX: Z12.31 Encounter for screening mammogram for malignant neoplasm of breast (principal) ==

== ENCOUNTER → 2024-05-21 | Outpatient (REF) | payer BC ==
[2024-05-21 17:13] LABS: BASO % 0.6 % (0.0-1.0); EOS # 0.2 10^3/uL (0.0-0.5); EOS % 2.8 % (0.0-3.0); HEMATOCRIT 42.4 % (36.0-47.0); HEMOGLOBIN 13.8 g/dl (12.0-15.5); LYMPH # 1.8 10^3/uL (1.5-5.0); LYMPH % 28.2 % (24.0-44.0); MEAN CORPUSCULAR HEMOGLOBIN 30.1 pg (27.0-33.0); MEAN CORPUSCULAR HGB CONC 32.5 g/dl (32.0-36.5); MEAN CORPUSCULAR VOLUME 92.4 fl (80.0-96.0); MONO # 0.4 10^3/uL (0.0-0.8); MONO % 6.7 % (2.0-8.0); NEUTROPHILS # 3.9 10^3/uL (1.5-8.5); NEUTROPHILS % 61.4 % (36.0-66.0); PLATELET COUNT, AUTOMATED 171 10^3/uL (150-450); RED BLOOD COUNT 4.59 10^6/uL (4.00-5.40); WHITE BLOOD COUNT 6.4 10^3/uL (4.0-10.0)
[2024-05-21 17:36] LABS: ALBUMIN 3.1 G/DL (3.2-5.2); ALKALINE PHOSPHATASE 78 U/L (35-104); ALT/SGPT 28 U/L (7.0-40); AST/SGOT 17 U/L (<34); BILIRUBIN,TOTAL 0.5 MG/DL (0.3-1.2); BLOOD UREA NITROGEN 11 MG/DL (9-23); CALCIUM LEVEL 9.3 MG/DL (8.5-10.1); CARBON DIOXIDE LEVEL 27 MMOL/L (20-31); CHLORIDE LEVEL 106 MMOL/L (98-107); CHOLESTEROL LEVEL 253 MG/DL (<200); CHOLESTEROL RISK RATIO 4.02 (<5); CREATININE FOR GFR 0.62 MG/DL (0.55-1.30); GLOMERULAR FILTRATION RATE > 60.0 (>51); GLUCOSE, FASTING 86 MG/DL (60-100); HDL CHOLESTEROL 62.9 MG/DL (>40); LDL CHOLESTEROL 137.5 MG/DL (<100); NON-HDL-C 190.1 MG/DL; POTASSIUM SERUM 4.7 MMOL/L (3.5-5.1); SODIUM LEVEL 139 MMOL/L (136-145); TOTAL PROTEIN 6.8 G/DL (5.7-8.2); TRIGLYCERIDES LEVEL 263 MG/DL (<150)
[2024-05-21 17:37] LABS: TOTAL 25(OH) VITAMIN D 43.1 NG/ML (20.0-100.0)
[2024-05-21 17:38] LABS: THYROID STIMULATING HORMONE 0.998 uIU/ML (0.55-4.78)
== END ==
LOC: M SFHCLERA 08:30
DX: I10 Essential (primary) hypertension (principal); Z68.36 Body mass index [BMI] 36.0-36.9, adult; E55.9 Vitamin D deficiency, unspecified

== ENCOUNTER → 2025-04-25 | Outpatient (REF) | payer BC ==
[2025-04-25 17:49] LABS: APPEARANCE, URINE TURBID (CLEAR); BACTERIA, URINE AUTO 3+ (NEGATIVE); BILIRUBIN, URINE AUTO NEGATIVE (NEGATIVE); BLOOD, URINE BLOOD NEGATIVE (NEGATIVE); GLUCOSE, URINE (UA) AUTO NEGATIVE (NEGATIVE); KETONE, URINE AUTO NEGATIVE (NEGATIVE); LEUKOCYTE ESTERASE, URINE AUTO NEGATIVE (NEGATIVE); MUCUS, URINE SMALL (NEGATIVE); NITRITE, URINE AUTO NEGATIVE (NEGATIVE); PROTEIN, URINE AUTO NEGATIVE (NEGATIVE); RBC, URINE AUTO 0 /HPF (0-3); SPECIFIC GRAVITY URINE AUTO 1.018 (1.002-1.035); SQUAMOUS EPITHELIAL CELL UR AU 10 /HPF (0-6); UROBILINOGEN, URINE AUTO 0.2 mg/dL (0.0-2.0); WBC, URINE AUTO 5 /HPF (0-3)
[2025-04-25 19:00] LABS: BASO # 0.0 10^3/uL (0.0-0.2); BASO % 0.4 % (0.0-1.0); EOS # 0.2 10^3/uL (0.0-0.5); EOS % 3.1 % (0.0-3.0); LYMPH # 1.4 10^3/uL (1.5-5.0); LYMPH % 27.1 % (24.0-44.0); MONO # 0.4 10^3/uL (0.0-0.8); MONO % 7.5 % (2.0-8.0); NEUTROPHILS # 3.2 10^3/uL (1.5-8.5); NEUTROPHILS % 61.7 % (36.0-66.0)
[2025-04-25 19:28] LABS: ESTIMATED AVERAGE GLUCOSE 105.0 MG/DL (60-110)
[2025-04-25 19:32] LABS: TOTAL 25(OH) VITAMIN D 61.0 NG/ML (20.0-100.0)
[2025-04-25 19:33] LABS: ALT/SGPT 37 U/L (7.0-40); AST/SGOT 33 U/L (<34); CALCIUM LEVEL 8.7 MG/DL (8.5-10.1); CARBON DIOXIDE LEVEL 27 MMOL/L (20-31); CHLORIDE LEVEL 105 MMOL/L (98-107); CHOLESTEROL LEVEL 244 MG/DL (<200); CHOLESTEROL RISK RATIO 3.46 (<5); CREATININE FOR GFR 0.67 MG/DL (0.55-1.30); GLOMERULAR FILTRATION RATE > 90.0 (>51); LDL CHOLESTEROL 145.2 MG/DL (<100); NON-HDL-C 173.6 MG/DL; POTASSIUM SERUM 4.2 MMOL/L (3.5-5.1); SODIUM LEVEL 142 MMOL/L (136-145); TRIGLYCERIDES LEVEL 142 MG/DL (<150)
== END ==
LOC: M SFHCLERA 07:48
PROVIDERS: ATTEND Internal Medicine
DX: I10 Essential (primary) hypertension (principal); E55.9 Vitamin D deficiency, unspecified

== ENCOUNTER → 2025-05-31 | Outpatient (CLI) | payer BC | LOC: M WHC 07:42 | PROVIDERS: ATTEND Obstetrics & Gynecology | DX: Z12.31 Encounter for screening mammogram for malignant neoplasm of breast (principal) ==